=== PATIENT | female | born 1950 | race Caucasian/White ===

== ENCOUNTER 2023-03-21 04:31 | Inpatient (IN) | payer OTHER ==
[~2023-03-21] VITALS: Ht 170.2 cm; Wt 100.0 kg
[2023-03-21 05:05] VITALS: PULSE 118; RESP 20; O2SAT 93
[2023-03-21 05:08] LABS: Basophils # (auto) 0 10 ^3/uL (0-0.2); Eosinophils # (auto) 0.1 10 ^3/uL (0-0.8); Eosinophils % (auto) 1.3 % (0.0-7.0); Lymphocytes # (auto) 0.2 10 ^3/uL (0.4-5.4); Monocytes # (auto) 0.5 10 ^3/uL (0-1.3); Neutrophils # (auto) 5.8 10 ^3/uL (1.6-8.6)
[2023-03-21 05:10] LABS: Hematocrit 38.2 % (36.0-46.0); Hemoglobin 12.3 g/dL (12.2-16.2); Lymphocytes % (auto) 2.4 % (10.0-50.0); Mean Corpuscular Hemoglobin 30.5 pg (28.0-32.0); Mean Corpuscular Hgb Conc. 32.2 g/dL (32.0-36.0); Mean Corpuscular Volume 94.7 fL (80.0-100.0); Monocytes % (auto) 8.1 % (0.0-12.0); Neutrophils % (auto) 88.2 % (37.0-80.0); Nucleated Red Blood Cells % 0.1 %; Red Blood Cells 4.04 10^6/uL (4.0-5.20); Red Cell Distribution Width 16.9 % (11.8-14.3); White Blood Cell 6.6 10^3/uL (4.4-10.8)
[2023-03-21 05:32] LABS: Alanine Aminotransferase 27 U/L (7-40); Albumin 4.2 g/dL (3.2-4.8); Alkaline Phosphatase 86 U/L (46-116); Anion Gap 11 (5-15); Aspartate Aminotransferase 29 U/L (13-40); BUN/Creatinine Ratio 20.2 (10.0-20.0); Bilirubin, Total 0.3 mg/dL (0.2-1.0); Blood Urea Nitrogen 55 mg/dL (9-23); Calcium 10.8 mg/dL (8.5-10.1); Carbon Dioxide 36 mmol/L (20-30); Chloride 88 mmol/L (98-107); Glucose 179 mg/dL (74-106); INR 1.18 (0.9-1.15); Partial Thromboplastin Time 29.8 SEC (24.5-34.5); Potassium 4.9 mmol/L (3.5-5.1); Prothrombin Time 12.3 sec (9.3-11.8); Sodium 135 mmol/L (136-145); Total Protein 7.3 g/dL (5.7-8.2)
[2023-03-21] MEDS ORDERED: SODIUM CHLORIDE 0.9% 1,000 ML IV ONE (07:15)
[2023-03-21] MEDS ORDERED: PROCHLORPERAZINE EDISYLATE 5 MG/ML 2ML VIAL IV ONE (07:15)
[2023-03-21 07:35] VITALS: PULSE 120; RESP 16; O2SAT 99
[2023-03-21 07:43] LABS: Base Excess 14.4 mmol/L (-2.0-2.0)
[2023-03-21 07:46] LABS: Lactic Acid w/Reflex 2.6 mmol/L (0.4-2.0)
[2023-03-21 08:22] LABS: COVID19 ANTIGEN SOFIA FIA NEGATIVE (NEGATIVE)
[2023-03-21 08:23] LABS: Rapid Influenza A Negative (Negative); Rapid Influenza B Negative (Negative)
[2023-03-21] MEDS ORDERED: fentaNYL CITRATE 100 MCG/2 ML VL IV ONE (08:45)
[2023-03-21] MEDS ORDERED: NITROGLYCERIN 0.4 MG SL TAB SL PRN (14:15)
[2023-03-21] MEDS ORDERED: DOCUSATE SOD 100 MG CAP PO PRN (14:15)
[2023-03-21] MEDS ORDERED: MORPHINE SULFATE INJ 2 MG/ml SYRG IV PRN (14:15)
[2023-03-21] MEDS: ONDANSETRON HCL 4 MG/2 ML VIAL IV PRN (14:35)
[2023-03-21] MEDS: SODIUM CHLORIDE 0.9% 1,000 ML IV SCH ×2 (14:36→19:15)
[2023-03-21] MEDS: MORPHINE SULFATE INJ 2 MG/ml SYRG IV PRN ×2 (14:36→18:26)
[2023-03-21 16:30] VITALS: PULSE 119; RESP 20; O2SAT 91
[2023-03-21] MEDS: ceFAZolin 1GM/50ML 50 ML IV SCH (18:23)
[2023-03-21 18:28] VITALS: BP 98/42; PULSE 118; RESP 22; O2SAT 99
[2023-03-21 19:03] VITALS: O2SAT 94
[2023-03-21 20:00] VITALS: PULSE 116; RESP 24; O2SAT 96
[2023-03-22] VITALS (18 sets, daily range): BP systolic 102–131; BP diastolic 45–71; PULSE 43–117; RESP 12–22; TEMP 36.6; O2SAT 89–98
[2023-03-22] MEDS: ceFAZolin 1GM/50ML 50 ML IV SCH ×4 (00:07→21:14)
[2023-03-22 00:48] LABS: Urine Bacteria FEW /hpf (None Seen); Urine Blood Negative /uL (Negative); Urine Clarity HAZY (Clear); Urine Color Yellow (Yellow); Urine Hyaline Cast FEW /lpf (0 - 2); Urine Protein, UAD 1+ (Negative); Urine Specific Gravity 1.026 (1.001-1.035); Urine WBC 14 /hpf (0 - 5)
[2023-03-22] MEDS: SODIUM CHLORIDE 0.9% 1,000 ML IV SCH ×5 (01:59→20:00)
[2023-03-22 04:16] LABS: Basophils # (auto) 0 10 ^3/uL (0-0.2); Eosinophils # (auto) 0.1 10 ^3/uL (0-0.8); Hemoglobin 10.9 g/dL (12.2-16.2); Lymphocytes # (auto) 0.2 10 ^3/uL (0.4-5.4); Monocytes # (auto) 0.7 10 ^3/uL (0-1.3); Neutrophils # (auto) 6.9 10 ^3/uL (1.6-8.6); Nucleated Red Blood Cells % 0.1 %
[2023-03-22 04:20] LABS: Hematocrit 33.7 % (36.0-46.0); Lymphocytes % (auto) 2.8 % (10.0-50.0); Mean Corpuscular Hemoglobin 30.2 pg (28.0-32.0); Mean Corpuscular Hgb Conc. 32.3 g/dL (32.0-36.0); Mean Corpuscular Volume 93.5 fL (80.0-100.0); Monocytes % (auto) 9.3 % (0.0-12.0); Neutrophils % (auto) 86.9 % (37.0-80.0); Red Blood Cells 3.61 10^6/uL (4.0-5.20); Red Cell Distribution Width 17.2 % (11.8-14.3)
[2023-03-22 04:27] LABS: Alanine Aminotransferase 24 U/L (7-40); Alkaline Phosphatase 77 U/L (46-116); Anion Gap 8 (5-15); Calcium 9.5 mg/dL (8.7-10.4); Carbon Dioxide 40 mmol/L (20-30); Chloride 91 mmol/L (98-107); Glucose 133 mg/dL (74-106); Potassium 4.7 mmol/L (3.5-5.1); Sodium 139 mmol/L (136-145)
[2023-03-22 04:28] LABS: Albumin 3.6 g/dL (3.2-4.8); Aspartate Aminotransferase 27 U/L (13-40)
[2023-03-22 04:29] LABS: Bilirubin, Total 0.2 mg/dL (0.2-1.0); Total Protein 6.4 g/dL (5.7-8.2)
[2023-03-22 04:35] LABS: Blood Urea Nitrogen 88 mg/dL (9-23)
[2023-03-22] MEDS ORDERED: PANTOPRAZOLE 40 MG/10 ML VIAL INJ IV SCH (10:00)
[2023-03-22] MEDS: ONDANSETRON HCL 4 MG/2 ML VIAL IV PRN ×2 (10:16→16:41)
[2023-03-22] MEDS: MORPHINE SULFATE INJ 2 MG/ml SYRG IV PRN ×3 (10:17→19:35)
[2023-03-22] MEDS ORDERED: GASTROGRAFIN 120 ML SOL ONE (10:26)
[2023-03-22] MEDS: IPRATROPIUM BROM 0.5 MG/2.5ML INH SOL NEB PRN ×2 (12:58→23:17)
[2023-03-22] MEDS: ALBUTEROL MEDNEB 2.5 mg/3ml NEB NEB PRN ×2 (12:59→23:17)
[2023-03-23] VITALS (10 sets, daily range): BP systolic 101–128; BP diastolic 54–75; PULSE 106–113; RESP 12–21; TEMP 99; O2SAT 91–94
[2023-03-23] MEDS: MORPHINE SULFATE INJ 2 MG/ml SYRG IV PRN ×5 (05:39→22:27)
[2023-03-23] MEDS: SODIUM CHLORIDE 0.9% 1,000 ML IV SCH ×3 (05:45→20:58)
[2023-03-23] MEDS: ONDANSETRON HCL 4 MG/2 ML VIAL IV PRN ×3 (07:52→17:14)
[2023-03-23] MEDS ORDERED: HEPARIN DRIP/D5W 100UNITS/ML 250 ML IV SCH (08:15)
[2023-03-23] MEDS ORDERED: OCTREOTIDE ACETATE 100 MCG in SODIUM CHL 0.9% 50 ML IV ONE (08:30)
[2023-03-23] MEDS: OCTREOTIDE ACETATE 500 MCG in SODIUM CHL 0.9% 99 ML IV SCH ×2 (08:30→19:06)
[2023-03-23 09:00] LABS: Alanine Aminotransferase 13 U/L (7-40); Albumin 3.7 g/dL (3.2-4.8); Alkaline Phosphatase 98 U/L (46-116); Anion Gap 9 (5-15); Aspartate Aminotransferase 32 U/L (13-40); Bilirubin, Total 0.2 mg/dL (0.2-1.0); Calcium 9.3 mg/dL (8.5-10.1); Carbon Dioxide 40 mmol/L (20-30); Chloride 96 mmol/L (98-107); Glucose 149 mg/dL (74-106); Potassium 4.4 mmol/L (3.5-5.1); Total Protein 6.5 g/dL (5.7-8.2)
[2023-03-23 09:01] LABS: Sodium 145 mmol/L (136-145)
[2023-03-23 09:03] LABS: INR 1.31 (0.9-1.15); Prothrombin Time 13.5 sec (9.3-11.8)
[2023-03-23] MEDS: PANTOPRAZOLE 40 MG/10 ML VIAL INJ IV SCH ×3 (09:16→22:50)
[2023-03-23 09:52] LABS: Basophils # (auto) 0 10 ^3/uL (0-0.2); Basophils % (auto) 0.1 % (0.0-2.0); Eosinophils # (auto) 0 10 ^3/uL (0-0.8); Lymphocytes # (auto) 0.2 10 ^3/uL (0.4-5.4); Lymphocytes % (auto) 1.3 % (10.0-50.0)
[2023-03-23 09:54] LABS: Mean Corpuscular Hemoglobin 29.8 pg (28.0-32.0); Mean Corpuscular Hgb Conc. 31.3 g/dL (32.0-36.0); Monocytes # (auto) 1.1 10 ^3/uL (0-1.3); Monocytes % (auto) 7.5 % (0.0-12.0); Neutrophils % (auto) 91.1 % (37.0-80.0); Red Blood Cells 3.68 10^6/uL (4.0-5.20); Red Cell Distribution Width 17.5 % (11.8-14.3); White Blood Cell 15.4 10^3/uL (4.4-10.8)
[2023-03-23] MEDS: HALOPERIDOL LACTATE 5 MG/ML INJ VIAL IM PRN ×3 (09:57→22:29)
[2023-03-23 10:00] LABS: BUN/Creatinine Ratio 23.8 (10.0-20.0)
[2023-03-23 10:02] LABS: Blood Urea Nitrogen 102 mg/dL (9-23)
[2023-03-23] MEDS: ceFAZolin 1GM/50ML 50 ML IV SCH ×2 (11:28→22:50)
[2023-03-23] MEDS: SUCRALFATE 1 GM/10 ML ORAL SUSP NG SCH ×3 (11:30→22:00)
[2023-03-23 14:21] LABS: Basophils # (auto) 0 10 ^3/uL (0-0.2); Eosinophils # (auto) 0 10 ^3/uL (0-0.8); Hemoglobin 10.8 g/dL (12.2-16.2); Lymphocytes # (auto) 0.2 10 ^3/uL (0.4-5.4); Red Blood Cells 3.73 10^6/uL (4.0-5.20)
[2023-03-23 14:23] LABS: Basophils % (auto) 0.2 % (0.0-2.0); Mean Corpuscular Hgb Conc. 30.1 g/dL (32.0-36.0); Mean Corpuscular Volume 96.4 fL (80.0-100.0); Monocytes # (auto) 1.4 10 ^3/uL (0-1.3); Monocytes % (auto) 7.7 % (0.0-12.0); Neutrophils # (auto) 16.7 10 ^3/uL (1.6-8.6); Neutrophils % (auto) 91.1 % (37.0-80.0); Red Cell Distribution Width 17.9 % (11.8-14.3); White Blood Cell 18.3 10^3/uL (4.4-10.8)
[2023-03-23 14:51] LABS: Alanine Aminotransferase 12 U/L (7-40); Albumin 3.6 g/dL (3.2-4.8); Alkaline Phosphatase 102 U/L (46-116); Anion Gap 11 (5-15); Aspartate Aminotransferase 36 U/L (13-40); BUN/Creatinine Ratio 21.1 (10.0-20.0); Calcium 9.1 mg/dL (8.5-10.1); Carbon Dioxide 36 mmol/L (20-30); Chloride 97 mmol/L (98-107); Glucose 145 mg/dL (74-106); Potassium 4.4 mmol/L (3.5-5.1); Sodium 144 mmol/L (136-145)
[2023-03-23 14:52] LABS: Bilirubin, Total < 0.2 mg/dL (0.2-1.0); Total Protein 6.3 g/dL (5.7-8.2)
[2023-03-23 14:55] LABS: Blood Urea Nitrogen 93 mg/dL (9-23)
[2023-03-24] MEDS: SODIUM CHLORIDE 0.9% 1,000 ML IV SCH ×2 (03:25→09:28)
[2023-03-24] MEDS: MORPHINE SULFATE INJ 2 MG/ml SYRG IV PRN ×4 (04:38→16:55)
[2023-03-24] MEDS ORDERED: OCTREOTIDE ACETATE 500 MCG/ML VL ONE (04:56)
[2023-03-24] MEDS: OCTREOTIDE ACETATE 500 MCG in SODIUM CHL 0.9% 99 ML IV SCH ×2 (05:01→14:15)
[2023-03-24 05:22] LABS: Chloride 104 mmol/L (98-107); Potassium 4.3 mmol/L (3.5-5.1)
[2023-03-24 05:23] LABS: Anion Gap 8 (5-15); Calcium 8.3 mg/dL (8.7-10.4); Carbon Dioxide 38 mmol/L (20-30)
[2023-03-24 05:28] LABS: BUN/Creatinine Ratio 29.4 (10.0-20.0); Glucose 132 mg/dL (74-106)
[2023-03-24 06:16] LABS: Sodium 150 mmol/L (136-145)
[2023-03-24 06:18] LABS: Blood Urea Nitrogen 112 mg/dL (9-23)
[2023-03-24] MEDS: SUCRALFATE 1 GM/10 ML ORAL SUSP NG SCH ×3 (06:19→17:00)
[2023-03-24 07:21] LABS: Basophils # (auto) 0 10 ^3/uL (0-0.2); Basophils % (auto) 0.1 % (0.0-2.0); Eosinophils # (auto) 0 10 ^3/uL (0-0.8); Lymphocytes # (auto) 0.4 10 ^3/uL (0.4-5.4); Mean Corpuscular Hemoglobin 29.1 pg (28.0-32.0); Neutrophils # (auto) 12.5 10 ^3/uL (1.6-8.6); Red Blood Cells 3.53 10^6/uL (4.0-5.20); White Blood Cell 14.4 10^3/uL (4.4-10.8)
[2023-03-24 07:23] LABS: Hematocrit 33.9 % (36.0-46.0); Hemoglobin 10.3 g/dL (12.2-16.2); Lymphocytes % (auto) 3.1 % (10.0-50.0); Mean Corpuscular Hgb Conc. 30.3 g/dL (32.0-36.0); Monocytes # (auto) 1.5 10 ^3/uL (0-1.3); Monocytes % (auto) 10.4 % (0.0-12.0); Neutrophils % (auto) 86.4 % (37.0-80.0); Red Cell Distribution Width 17.9 % (11.8-14.3)
[2023-03-24 07:29] VITALS: PULSE 104; RESP 19; O2SAT 93
[2023-03-24 09:00] VITALS: TEMP 98
[2023-03-24] MEDS: ceFAZolin 1GM/50ML 50 ML IV SCH (09:27)
[2023-03-24] MEDS: PANTOPRAZOLE 40 MG/10 ML VIAL INJ IV SCH (09:27)
[2023-03-24 09:53] VITALS: O2SAT 94
[2023-03-24] MEDS ORDERED: NOREPINEPHRINE 8 MG/250ML KIT 250 ML IV SCH (12:00)
[2023-03-24] MEDS ORDERED: SOD CHL 0.45% 1,000 ML IV SCH (12:00)
[2023-03-24] MEDS: ONDANSETRON HCL 4 MG/2 ML VIAL IV PRN (12:47)
[2023-03-24] MEDS ORDERED: KETOROLAC TROMETH 30 MG/ML 1ML VIAL IV PRN (13:15)
[2023-03-24] MEDS ORDERED: HYDROmorphone HCL 2 MG/ML VL/or syr IV PRN (13:45)
[2023-03-24] MEDS ORDERED: LORazepam 2MG/ML-1ML VIAL IV ONE (15:15)
[2023-03-24 18:45] VITALS: BP 63/34; RESP 33; O2SAT 67
[2023-03-24 18:54] VITALS: PULSE 118
== END 2023-03-24 19:11 | DRG 374 ==
LOC: ER 04:31 → EDBD 04:31 → TELE 14:04
PROVIDERS: ADMIT Nurse Practitioner Family; ATTEND Family Medicine
PROC: 0D9670Z Drainage of Stomach with Drainage Device, Via Natural or Artificial Opening (ICD-10-PCS; principal; 2023-03-22)
DX: C78.6 Secondary malignant neoplasm of retroperitoneum and peritoneum (principal); J96.21 Acute and chronic respiratory failure with hypoxia; K92.0 Hematemesis; N17.9 Acute kidney failure, unspecified; E87.21 Acute metabolic acidosis; E87.0 Hyperosmolality and hypernatremia; G89.29 Other chronic pain; D72.829 Elevated white blood cell count, unspecified; R19.09 Other intra-abdominal and pelvic swelling, mass and lump; F17.200 Nicotine dependence, unspecified, uncomplicated; Z20.822 Contact with and (suspected) exposure to COVID-19; E86.0 Dehydration; Z66 Do not resuscitate; R57.0 Cardiogenic shock; I12.9 Hypertensive chronic kidney disease with stage 1 through stage 4 chronic kidney disease, or unspecified chronic kidney disease; N18.9 Chronic kidney disease, unspecified; C54.1 Malignant neoplasm of endometrium; J44.9 Chronic obstructive pulmonary disease, unspecified; M54.50 Low back pain, unspecified; Z85.028 Personal history of other malignant neoplasm of stomach; Z71.6 Tobacco abuse counseling; Z90.5 Acquired absence of kidney; Z90.710 Acquired absence of both cervix and uterus
CPT/HCPCS: 36415; 36600; 70450; 71045; 74176; 74250; 76775; 78582; 80048; 80053; 81001; 82140; 82805; 83605; 83690; 83880; 84484; 85025; 85379; 85610; 85730; 86850; 86900; 86901; 87040; 87076; 87077; 87186; 87426; 87804; 93005; 93306; 93970; 94640; C9113; G0378; J0690; J2405